=== PATIENT | female | born 2000 | race Caucasian/White ===

== ENCOUNTER 2023-04-21 18:25 | Emergency (ER) | payer MEDICAID ==
[~2023-04-21] VITALS: Ht 165.1 cm; Wt 69.4 kg
[2023-04-21] MEDS ORDERED: VENTOLIN HFA18 GM (18:43)
[2023-04-21 18:49] LABS: BASOPHILS 0.5 % (0-2); EOSINOPHILS 2.5 % (0-6); HEMATOCRIT 41.1 % (35.0-50.0); HEMOGLOBIN 13.7 g/dL (12.0-18.0); MCH 30.1 (27-36); MCHC 33.4 g/dl (30-36); MCV 90.1 fl (81-99); MONOCYTES 6.8 % (0-12); NEUTROPHILS 57.2 % (39-80); PLATELET COUNT 289 K/uL (140-440); RBC 4.56 M/ul (4.3-5.7); RDW 13.5 (10.5-15.0)
[2023-04-21 19:25] LABS: ABO O; RH POSITIVE
[2023-04-21 19:27] LABS: ALBUMIN 3.9 g/dL (3.4-5.0); ALBUMIN/GLOBULIN RATIO 1.03 (1.1-2.4); ANION GAP 14.4 (7-21); BILIRUBIN, TOTAL 0.3 ng/dL (0.2-1.0); BUN/CREATININE RATIO 13.79 (6.0-28.6); CALCIUM 9.3 mg/dL (8.5-10.1); CREATININE, SERUM 0.58 mg/dL (0.55-1.02); POTASSIUM 3.4 mmol/L (3.5-5.1); PROTEIN, TOTAL 7.7 g/dL (6.4-8.2)
[2023-04-21 19:42] LABS: BILIRUBIN, URINE NEGATIVE (negative); BLOOD/HGB, URINE TRACE-I (Negative); KETONE, URINE NEGATIVE (Negative); LEUK ESTERASE, URINE NEGATIVE (negative); NITRITE, URINE NEGATIVE (negative); PH, URINE 6.5 (5-7)
[2023-04-21 19:50] LABS: BACTERIA, URINE RARE /hpf (negative); CASTS, URINE NONE SEEN \\lpf; COLLECTION TYPE, URINE CLEAN CATCH; CRYSTALS, URINE NONE SEEN (0-1+); EPITHELIAL CELLS, URINE SQUAMOUS 2+ /lpf (0-1+); REFLEX CULTURE, URINE No (No)
[2023-04-21 22:30] VITALS: BP 113/67
== END 2023-04-21 22:32 | disposition home or self-care (01) ==
LOC: ED 18:25
PROVIDERS: Emergency Medicine
DX: O20.9 Hemorrhage in early pregnancy, unspecified (principal); Z3A.14 14 weeks gestation of pregnancy
CPT/HCPCS: 36415; 76705; 76815; 80053; 81001; 84702; 85025; 86900; 86901; J7121

== ENCOUNTER 2023-10-06 00:04 | Inpatient (IN) | payer OTHER ==
[~2023-10-06] VITALS: Ht 165.1 cm; Wt 82.6 kg
[~2023-10-06 00:04] MED LIST: VENTOLIN HFA18 GM
[2023-10-06] MEDS ORDERED: MAGNESIUM HYDROXIDE/AL HYDROX 30 ML CUP PO PRN ×2 (01:00→21:30)
[2023-10-06] MEDS ORDERED: miSOPROStoL 25 MCG TAB PV SCH (01:00)
[2023-10-06] MEDS ORDERED: OXYTOCIN/DEXTROSE 5% 20 UNITS/100 ML BAG IV SCH (01:00)
[2023-10-06] MEDS ORDERED: LACTATED RINGER'S 1,000 ML IV PRN (01:00)
[2023-10-06] MEDS ORDERED: CALCIUM CARBONATE 500 MG CHEW PO PRN ×2 (01:00→21:30)
[2023-10-06] MEDS ORDERED: LACTATED RINGER'S 1,000 ML IV SCH (01:00)
[2023-10-06 01:06] LABS: HEMATOCRIT 38.2 % (35.0-50.0); HEMOGLOBIN 12.9 g/dL (12.0-18.0); MCH 29.7 (27-36); MCHC 33.7 g/dl (30-36); MCV 88.2 fl (81-99); RBC 4.33 M/ul (4.3-5.7); RDW 13.1 (10.5-15.0)
[2023-10-06 01:23] LABS: AMPHETAMINES, URINE NEGATIVE (NEGATIVE); BARBITURATES, URINE NEGATIVE (NEGATIVE); BENZODIAZEPINE, URINE NEGATIVE (NEGATIVE); BUPRENORPHINE, URINE NEGATIVE (NEGATIVE); CANNABINOID, URINE NEGATIVE (NEGATIVE); COCAINE, URINE NEGATIVE (NEGATIVE); ECSTASY, URINE NEGATIVE (NEGATIVE); FENTANYL, URINE NEGATIVE (NEGATIVE); METHADONE, URINE NEGATIVE (NEGATIVE); OPIATES, URINE NEGATIVE (NEGATIVE); OXYCODONE, URINE NEGATIVE (NEGATIVE); PHENCYCLIDINE, URINE NEGATIVE (NEGATIVE)
[2023-10-06 01:43] LABS: ABO O; ANTIBODY SCREEN NEGATIVE; RH POSITIVE
[2023-10-06 02:02] VITALS: BP 111/64
--- NOTE | 2023-10-06 12:31 | PR ---
[facility] [address] [facility] [place], [place] [address] Signed Progress Notes IP Datetime Report Generated by ELDA: 10/06/2023 12:31 PROGRESS NOTES: [id number] Impression: Normal Progression of Labor Procedures: Artificial ROM; Sterile Vag Exam Plan: Continue Present Management VITAL SIGNS: [id number] Vital Signs: Reviewed; Within Normal Limits EXAM: [id number] Dilatation: 1.0 Effacement: 50 Station: -2 Contractions: q 2 min MEMBRANES: [id number] Comments: Becoming more uncomfortable. Will continue. FETUS A: [id number] FHR Baseline: 135 Variability: Moderate 6-25bpm Accelerations: 15X15 Decelerations: None FHR Category: Category I Presentation: Vertex FETUS B: [id number] Signing Physician: Jasmyne Vicente MD Copies: ~ *Electronically Signed* 10/06/23 1231 JASMYNE VICENTE MD PATIENT NAME: MERCEDES COOK PROGRESS NOTE DATE OF : [birth year] PHYSICIAN: JASMYNE VICENTE MD RPT #: [id number] REPORT IS CONFIDENTIAL AND NOT TO BE RELEASED WITHOUT AUTHORIZATION
[2023-10-06] MEDS ORDERED: ROPIVACAINE 0.2% 200 ML BAG ONE (13:53)
[2023-10-06] MEDS ORDERED: LIDOCAINE HCL 2% 5 ML SDV ONE (13:53)
[2023-10-06] MEDS ORDERED: BUPIVACAINE HCL 0.25% 10 ML SDV INJ ONE (13:53)
[2023-10-06] MEDS ORDERED: ePHEDrine sulfate 5 MG/ML SYRINGE IV PRN (14:45)
[2023-10-06] MEDS ORDERED: ROPIVACAINE 0.2% 200 ML BAG EPIDURAL SCH ×2 (14:45)
[2023-10-06] MEDS ORDERED: LACTATED RINGER'S 2,000 ML IV ONE (14:45)
[2023-10-06] MEDS ORDERED: LACTATED RINGER'S 500 ML IV PRN (14:45)
[2023-10-06] MEDS ORDERED: MAGNESIUM HYDROXIDE 30 ML UDC PO PRN (21:30)
[2023-10-06] MEDS ORDERED: HYDROCORTISONE ACETATE 25 MG SUPP PR PRN (21:30)
[2023-10-06] MEDS ORDERED: WITCH HAZEL/GLYCERIN 1 EA PAD TOP PRN (21:30)
[2023-10-06] MEDS ORDERED: ACETAMINOPHEN 500 MG TAB PO PRN (21:30)
[2023-10-06] MEDS ORDERED: LIDOCAINE 2% VISCOUS 6 ML SYR TOP ONE ×2 (21:30)
[2023-10-06] MEDS ORDERED: BENZOCAINE/LANOLIN/ALOE VERA 60 ML AEROSOL TOP PRN (21:30)
[2023-10-06] MEDS ORDERED: IBUPROFEN 800 MG TAB PO PRN (21:30)
[2023-10-06] MEDS ORDERED: OXYTOCIN/0.9 % SODIUM CHLORIDE 500 ML IV SCH (21:30)
[2023-10-06] MEDS ORDERED: OXYCODONE HCL 5 MG TAB PO PRN (21:30)
[2023-10-06] MEDS ORDERED: METHYLERGONOVINE MALEATE 0.2 MG/ML AMP IM ONE (21:30)
[2023-10-06] MEDS ORDERED: ACETAMINOPHEN 325 MG TAB PO PRN (21:30)
[2023-10-07 05:31] LABS: HEMATOCRIT 36.7 % (35.0-50.0); HEMOGLOBIN 12.5 g/dL (12.0-18.0); MCH 30.3 (27-36); MCHC 34.1 g/dl (30-36); MCV 88.9 fl (81-99); PLATELET COUNT 272 K/uL (140-440); RBC 4.13 M/ul (4.3-5.7); RDW 13.2 (10.5-15.0)
[2023-10-07 05:43] LABS: BANDS, MANUAL DIFF 8; EOSINOPHILS, MANUAL DIFF 2; LYMPHOCYTES, MANUAL DIFF 27; MONOCYTES, MANUAL DIFF 3; NEUTROPHILS, MANUAL DIFF 60
--- NOTE | 2023-10-07 08:27 | PR ---
[facility] [address] [facility] [place], [place] [address] Signed PP Progress Notes Datetime Report Generated by CPFelton: 10/07/2023 08:27 SUBJECTIVE: [id number] Pain: Within Normal Limits Vital Signs: [id number] Vital Signs: Reviewed; Within Normal Limits Cardiovascular: Not Done Respiratory: Not Done Abdomen/Uterus: Abnormal Lochia: Normal Vulva/Perineum: Not Done Breasts: Not Done CVA Tenderness: Not Done Extremities: Normal Incision: Not Applicable Progress: Abnormal Exam Comments: Fundus firm, NT @ U-1. H/H 12.5/36.7, WBC 20.5 S60, B8, L27, plat 272k IMPRESSION/PLAN/PROCEDURES: [id number] Impression: Normal Progression; Difficulties Plan: Continue Present Management; Consult Procedures: None Progress Notes: Doing well. Will work on breast feeding today with probable D/C tomorrow. Signing Physician: Jasmyne Vicente MD Copies: ~ *Electronically Signed* 10/07/23826 JASMYNE VICENTE MD PATIENT NAME: MERCEDES COOK PROGRESS NOTE DATE OF : 98 PHYSICIAN: JASMYNE VICENTE MD RPT #: [id number] REPORT IS CONFIDENTIAL AND NOT TO BE RELEASED WITHOUT AUTHORIZATION
[2023-10-07] MEDS ORDERED: SENNOSIDES/DOCUSATE 1 EA TAB PO SCH (09:00)
--- NOTE | 2023-10-08 07:17 | PR ---
[facility] [address] [facility] [place], [place] [address] Signed PP Progress Notes Datetime Report Generated by CPN: 10/08/2023 07:17 SUBJECTIVE: [id number] Pain: Within Normal Limits Nausea/Vomiting: Denies Flatus: Yes Bowel Movement: Yes Vital Signs: [id number] Vital Signs: Reviewed; Within Normal Limits Cardiovascular: Normal Respiratory: Normal Abdomen/Uterus: Normal Lochia: Normal Vulva/Perineum: Not Done Breasts: Not Done CVA Tenderness: Normal Extremities: Normal Incision: Not Applicable Progress: Normal Exam Comments: Fundus firm U-2 nontender. IMPRESSION/PLAN/PROCEDURES: [id number] Impression: Normal Progression Plan: Discharge Procedures: None Progress Notes: Pt seen and examined. Doing well. Ambulating, voiding, and tolerating full diet. Pain and lochia minimal. Resoultion of itching since delivery. No concerns. Desires d/c home. Reviewed d/c instructions. Undecided on contraceptive plans. F/U Dr. Vicente 2 wks Signing Physician: Tania Kohli DO Copies: ~ *Electronically Signed* 10/08/23 07 TANIA KOHLI (CHRISTIANO) DO PATIENT NAME: MERCEDES COOK PROGRESS NOTE DATE OF : 98 PHYSICIAN: TANIA KOHLI (JD) DO RPT #: [id number] REPORT IS CONFIDENTIAL AND NOT TO BE RELEASED WITHOUT AUTHORIZATION
== END 2023-10-08 13:05 | disposition home or self-care (01) | DRG 807 ==
LOC: FBC 00:04
PROVIDERS: ADMIT Obstetrics & Gynecology; ATTEND Obstetrics & Gynecology
PROC: 10E0XZZ Delivery of Products of Conception, External Approach (ICD-10-PCS; principal; 2023-10-06)
PROC: 3E0R3BZ Introduction of Anesthetic Agent into Spinal Canal, Percutaneous Approach (ICD-10-PCS; 2023-10-06)
PROC: 00HU33Z Insertion of Infusion Device into Spinal Canal, Percutaneous Approach (ICD-10-PCS; 2023-10-06)
PROC: 10907ZC Drainage of Amniotic Fluid, Therapeutic from Products of Conception, Via Natural or Artificial Opening (ICD-10-PCS; 2023-10-06)
PROC: 0UQMXZZ Repair Vulva, External Approach (ICD-10-PCS; 2023-10-06)
DX: O26.643 Intrahepatic cholestasis of pregnancy, third trimester (principal); Z37.0 Single live birth; E78.79 Other disorders of bile acid and cholesterol metabolism; K76.89 Other specified diseases of liver; O71.82 Other specified trauma to perineum and vulva; Z3A.38 38 weeks gestation of pregnancy; O70.0 First degree perineal laceration during delivery
CPT/HCPCS: 01960; 36415; 80307; 85007; 85027; 86850; 86900; 86901; A9270; J2001; J2210; J2590; J2795; J7121

== ENCOUNTER 2024-11-17 11:44 | Inpatient (IN) | payer OTHER ==
[2024-11-17] MEDS ORDERED: MAGNESIUM HYDROXIDE/AL HYDROX 30 ML CUP PO PRN (12:45)
[2024-11-17] MEDS ORDERED: ondansetron HCL 4 MG/2 ML VIAL IV PRN ×4 (12:45→23:15)
[2024-11-17] MEDS ORDERED: CALCIUM CARBONATE 500 MG CHEW PO PRN (12:45)
[2024-11-17] MEDS ORDERED: fentaNYL citrate 100 MCG/2 ML VIAL IV PRN (12:45)
[2024-11-17 14:21] LABS: HEMATOCRIT 39.5 % (35.0-50.0); HEMOGLOBIN 13.4 g/dL (12.0-18.0); MCH 29.3 (27-36); MCV 86.1 fl (81-99); RBC 4.58 M/ul (4.3-5.7); RDW 17.7 (10.5-15.0)
[2024-11-17 15:00] LABS: ABO O
[2024-11-17 15:01] LABS: ANTIBODY SCREEN NEGATIVE; RH POSITIVE
[2024-11-17] MEDS ORDERED: OXYTOCIN/0.9 % SODIUM CHLORIDE 500 ML IV SCH ×2 (19:30→23:15)
[2024-11-17 20:29] LABS: AMPHETAMINES, URINE NEGATIVE (NEGATIVE); BARBITURATES, URINE NEGATIVE (NEGATIVE); BENZODIAZEPINE, URINE NEGATIVE (NEGATIVE); BUPRENORPHINE, URINE NEGATIVE (NEGATIVE); CANNABINOID, URINE NEGATIVE (NEGATIVE); COCAINE, URINE NEGATIVE (NEGATIVE); ECSTASY, URINE NEGATIVE (NEGATIVE); FENTANYL, URINE NEGATIVE (NEGATIVE); METHADONE, URINE NEGATIVE (NEGATIVE); OPIATES, URINE NEGATIVE (NEGATIVE); OXYCODONE, URINE NEGATIVE (NEGATIVE); PHENCYCLIDINE, URINE NEGATIVE (NEGATIVE)
[2024-11-17] MEDS ORDERED: LACTATED RINGER'S 1,000 ML IV PRN (21:00)
[2024-11-17] MEDS ORDERED: LACTATED RINGER'S 1,000 ML IV SCH ×2 (21:00→23:15)
[2024-11-17] MEDS ORDERED: BUPIVACAINE 0.75% IN DEXTROSE 2 ML AMP ONE (21:43)
[2024-11-17] MEDS ORDERED: DEXAMETHASONE SOD PHOS 4 MG/ML VIAL ONE (21:43)
[2024-11-17] MEDS ORDERED: OXYTOCIN 10 UNITS/ML VIAL ONE (21:43)
[2024-11-17] MEDS ORDERED: ondansetron HCL 4 MG/2 ML VIAL ONE (21:43)
[2024-11-17] MEDS ORDERED: FAMOTIDINE 20 MG/ 2 ML VIAL ONE (21:43)
[2024-11-17] MEDS ORDERED: METOCLOPRAMIDE HCL 10 MG/2 ML SDV ONE (21:43)
[2024-11-17] MEDS ORDERED: LIDOCAINE HCL 2% 5 ML SDV ONE (21:43)
[2024-11-17] MEDS ORDERED: MORPHINE SULFATE 1 MG/ML VIAL ONE (21:43)
[2024-11-17] MEDS ORDERED: AZITHROMYCIN 500 MG VIAL ONE (21:43)
[2024-11-17] MEDS ORDERED: AZITHROMYCIN 500 MG in DEXTROSE 5% 250 ML IV ONE (21:45)
[2024-11-17] MEDS ORDERED: CEFAZOLIN SODIUM 2 GM/20 ML SYR IV ONE (21:45)
[2024-11-17] MEDS ORDERED: LACTATED RINGER'S 3,000 ML IV ONE (22:20)
[2024-11-17] MEDS ORDERED: ePHEDrine sulfate 50 MG/ML AMP ONE (22:47)
[2024-11-17] MEDS ORDERED: Ropivacaine HCl 0.5% 30 ML VIAL ONE (22:50)
[2024-11-17] MEDS ORDERED: SODIUM CHLORIDE 0.9% 40 ML IV ONE (22:50)
[2024-11-17] MEDS ORDERED: NALOXONE HCL 0.4 MG SYR IV PRN ×2 (23:00)
[2024-11-17] MEDS ORDERED: MORPHINE SULFATE 10 MG/ML VIAL IV PRN (23:00)
[2024-11-17] MEDS ORDERED: fentaNYL citrate 50 MCG/ML SDV IV PRN (23:00)
[2024-11-17] MEDS ORDERED: KETOROLAC TROMETHAMINE 30 MG/ML VIAL IV PRN (23:00)
[2024-11-17] MEDS ORDERED: droPERidol 5 MG/2 ML VIAL IV PRN (23:00)
[2024-11-17] MEDS ORDERED: MORPHINE SULFATE 4 MG/ML VIAL IV PRN (23:00)
[2024-11-17] MEDS ORDERED: diphenhydrAMINE HCL 25 MG CAP PO PRN (23:00)
[2024-11-17] MEDS ORDERED: METOCLOPRAMIDE HCL 10 MG/2 ML SDV IV PRN ×3 (23:00→23:15)
[2024-11-17] MEDS ORDERED: diphenhydrAMINE HCL 50 MG/ML VIAL IV PRN (23:00)
[2024-11-17] MEDS ORDERED: PROCHLORPERAZINE EDISYLATE 10 MG/2 ML VIAL IV PRN ×3 (23:00→23:15)
[2024-11-17] MEDS ORDERED: IBLOOD GLUCOSE TEST STRIP 1 EA TEST VI PRN (23:00)
[2024-11-17] MEDS ORDERED: SENNOSIDES/DOCUSATE 1 EA TAB PO SCH (23:11)
[2024-11-17] MEDS ORDERED: PROMETHAZINE HCL 25 MG SUPP PR PRN (23:15)
[2024-11-17] MEDS ORDERED: PROMETHAZINE HCL 25 MG TAB PO PRN (23:15)
[2024-11-17] MEDS ORDERED: OXYCODONE HCL 5 MG TAB PO PRN (23:15)
[2024-11-17] MEDS ORDERED: HYDROCODONE/ACETA 5/325 TAB PO PRN (23:15)
[2024-11-17] MEDS ORDERED: bisacodyL 10 MG SUPP PR PRN (23:15)
--- NOTE | 2024-11-17 23:35 | NUR ---
11/17/24 2335 Thalia Taylor 2322-PATIENT ARRIVED TO ROOM 102 VIA BED FOR RECOVERY. PATIENT AWAKE DENIES PAIN OR NAUSEA FUNDUS CHECKED IN OR PRIOR TO LEAVING WAS FIRM LIGHT RUBRA DRAINAGE ON PAD TO THE RIGHT. PATIENT DID PASS ODOROUS GAS. SR HR 70'S LR WITH OXYTOCIN INFUSING TO RIGHT ARM INTACT [id number] AWAKE DENIES PAIN OR NAUSEA FUNDUS FIRM MIDLINE LIGHT RUBRA DRAINAGE. DAD AT BEDSIDE. FBC RN ASSISTING MOM TO FEED TO RIGHT BREAST. HOB SLIGHTLY ELEVATED RA 98% RR EVEN
[2024-11-17 23:54] VITALS: BP 95/56
[2024-11-18] MEDS ORDERED: SOD+POT BICARB/CITRIC ACID 2 EA TABLET.EFF PO ONE
[2024-11-18] MEDS ORDERED: ACETAMINOPHEN 500 MG TAB PO SCH (06:00)
[2024-11-18] MEDS ORDERED: SIMETHICONE 80 MG CHEW PO SCH (07:00)
[2024-11-18] MEDS ORDERED: IBUPROFEN 600 MG TAB PO SCH (08:00)
--- NOTE | 2024-11-18 08:20 | OR ---
[place] [address] [place], [place] [address] Signed DATE OF OPERATION: 11/17/2024 SURGEON: Adriana Russo MD PREOPERATIVE DIAGNOSES: 1. Intrauterine at 38 and 5/7th weeks. 2. Premature rupture of membranes. 3. Labor. 4. Nonreassuring surveillance. 5. Unstable lie. POSTOPERATIVE DIAGNOSES: 1. Intrauterine at 38 and 5/7th weeks. 2. Premature rupture of membranes. 3. Labor. 4. Nonreassuring surveillance. 5. Unstable lie. PROCEDURE: Primary low transverse repeat section. FINDINGS: Normal uterus, ovaries and tubes, clear amniotic fluid, fetus in transverse position, vigorous male, Apgars 9 and 10, weight of 7 pounds 5 ounces. ANESTHESIA: Spinal. MIDDLEWARE ARCHITECT: None. ESTIMATED BLOOD LOSS: 750 mL. IV FLUIDS: 2500 mL of crystalloid. URINE OUTPUT: 1600 mL clear urine. Electronically Signed By: ADRIANA RUSSO MD 11/18/24 0820 PATIENT NAME: MERCEDES COOK OPERATIVE REPORT DATE OF : [birth year] REPORT #: [id number] PHYSICIAN: ADRIANA RUSSO MD PCP: NO PRIMARY CARE PHYSICIAN REPORT IS CONFIDENTIAL AND NOT TO BE RELEASED WITHOUT AUTHORIZATION [address] [address] Signed DRAINS: Cervantes to gravity. SPECIMENS: None. COUNTS: Correct x2. COMPLICATIONS: None apparent. TECHNIQUE IN DETAIL: With informed consent, the patient was taken to the operating room. She was given intravenous Ancef 2 g per protocol as well as intravenous azithromycin 500 mg per protocol. Spinal anesthetic was placed and she was prepped and draped in sterile fashion. Lower extremities were also placed in SCD pneumatic compression devices for DVT prophylaxis. Time-out was performed per protocol. Under adequate spinal anesthetic and approximately 7-inch Pfannenstiel skin incision was made and sharp dissection was carried down to the layer of the rectus fascia, which was nicked in the midline. The matthew was enlarged bilaterally using sharp dissection. The rectus muscles were taken down from the fascia both superiorly and inferiorly using a combination of sharp and blunt dissection. The peritoneum was entered bluntly at the most superior aspect after the rectus muscles at the midline bluntly. The peritoneal opening was enlarged with a combination of the electrocautery device and blunt dissection. A bladder blade was placed. The head was pushed to the midline. Once pushed into the cervical area directly vertical, a scalpel was used to make a low transverse hysterotomy incision. Sharp dissection was carried down to the superficial layers. The remainder of the myometrium was using the blunt end of the scalpel. The surgeon's finger was used to enter the uterine cavity. Uterine incision was then enlarged with blunt dissection in a superior to inferior direction. The surgeon's hand was placed into the lower uterine segment. head was elevated and delivered with fundal pressure. There was no nuchal cord. After an approximately 7 or 8 seconds delayed, the cord was clamped x2 and cut and the baby was handed over to the resuscitation team, present for transition. Cord blood was taken for routine testing. The placenta was delivered intact with a three-vessel cord using gentle massage and fundal massage as well. Gentle traction was Electronically Signed By: ADRIANA RUSSO MD 11/18/24 0820 PATIENT NAME: MERCEDES COOK OPERATIVE REPORT DATE OF : [birth year] REPORT #: [id number] PHYSICIAN: ADRIANA RUSSO MD PCP: NO PRIMARY CARE PHYSICIAN REPORT IS CONFIDENTIAL AND NOT TO BE RELEASED WITHOUT AUTHORIZATION [facility] [address] [place], [place] [address] Signed also applied. Good uterine tone was achieved with intravenous oxytocin. The uterus was carefully externalized and then the uterine cavity was curetted with laparotomy sponges. The hysterotomy site was closed with 0 Monocryl in a running locked fashion. The second imbricating layer of 0 Monocryl was also placed in a running fashion. The uterine incision was found to be hemostatic. The posterior cul-de-sac was cleared of all blood and clot with suction. Uterus was gently replaced after examining the adnexa with the above mentioned findings. The left and right pericolic gutters were examined and all clots were removed. The uterine incision was inspected again and found to be hemostatic. The rectus muscles and the peritoneum were reapproximated with 2-0 chromic in a running fashion. The rectus muscle bellies were inspected and found to be hemostatic. The rectus fascia was reapproximated using 0 Vicryl in a running fashion. The superficial incision was irrigated and rendered hemostatic with the electrocautery device. The subcutaneous tissue was reapproximated with 2-0 chromic in a running fashion and the skin was closed using the 4-0 Quill dermal suture. Steri-Strips and skin glue were placed. A bandage was placed over the incision. The uterus was expressed of all clots. DISPOSITION: The patient and baby were taken into the recovery room in stable condition. MD KAUR Patrick/AMANDAL /[id number] Copies: ~ Electronically Signed By: ADRIANA RUSSO MD 11/18/24819 PATIENT NAME: MERCEDES COOK OPERATIVE REPORT DATE OF : [birth year] REPORT #: [id number] PHYSICIAN: ADRIANA RUSSO MD PCP: NO PRIMARY CARE PHYSICIAN REPORT IS CONFIDENTIAL AND NOT TO BE RELEASED WITHOUT AUTHORIZATION
== END 2024-11-20 12:35 | disposition home or self-care (01) | DRG 788 ==
LOC: FBCO 11:44 → FBC 12:29
PROVIDERS: ADMIT Obstetrics & Gynecology; ATTEND Obstetrics & Gynecology
PROC: 10D00Z1 Extraction of Products of Conception, Low, Open Approach (ICD-10-PCS; principal; 2024-11-17 22:00)
DX: O42.02 Full-term premature rupture of membranes, onset of labor within 24 hours of rupture (principal); O32.0XX1 Maternal care for unstable lie, fetus 1; Z3A.38 38 weeks gestation of pregnancy; Z37.0 Single live birth; O99.345 Other mental disorders complicating the puerperium; F53.0 Postpartum depression; Z90.89 Acquired absence of other organs
CPT/HCPCS: 01961; 36415; 80307; 85027; 86850; 86900; 86901; A9270; J0456; J0690; J0780; J1100; J2003; J2274; J2405; J2590; J2765; J2795; J7060; J7121

== ENCOUNTER 2025-06-19 13:38 | Emergency (ER) | payer OTHER ==
[~2025-06-19] VITALS: Ht 152.4 cm; Wt 69.0 kg
--- OUTSIDE RECORDS SUMMARY | 2025-06-19 13:45 | XMS ---
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 Pilar VISIT COUNT (12 MO.) 2 [facility] Scherer 1 NILESH Michel TOTAL 3 NOTE: Visits indicate total known visits. ED/UCC VISIT TRACKING (12 MO.) 06/19/2025 13:39 [facility] [place] TYPE: Emergency COMPLAINT: - RT KNEE INJURY 06/11/2025 20:16 [facility] [place] TYPE: Emergency [facility] [place] [facility]: Emergency COMPLAINT: - Lower abdominal pain, unspecified - Mastitis without abscess DIAGNOSES: 1. Mastitis without abscess 2. Lower abdominal pain, unspecified 3. Presence of (intrauterine) contraceptive device INPATIENT VISIT TRACKING (12 MO.) 11/17/2024 12:29 N[facility] [place] TYPE: [facility] COMPLAINT: - LABOR AND DELIVERY DIAGNOSES: - 38 weeks gestation of - 38 weeks gestation of - Acquired absence of other organs - Acquired absence of other organs - Full-term premature rupture of membranes, onset of labor within 24 hours of rupture - Full-term premature rupture of membranes, onset of labor within 24 hours of rupture - Maternal care for unstable lie, fetus 1 - Maternal care for unstable lie, fetus 1 - Maternal care for unstable lie, fetus 1 - Other mental disorders complicating the puerperium - Other mental disorders complicating the puerperium - depression - depression - Single live - Single live [email or web address]
[2025-06-19] MEDS ORDERED: SERTRALINE HCL50 MG (13:55)
[2025-06-19 15:30] VITALS: BP 108/64
== END 2025-06-19 15:35 | disposition home or self-care (01) ==
LOC: ED 13:38
DX: S83.91XA Sprain of unspecified site of right knee, initial encounter (principal); W01.0XXA Fall on same level from slipping, tripping and stumbling without subsequent striking against object, initial encounter; Z79.899 Other long term (current) drug therapy
CPT/HCPCS: 73560; 99283